=== PATIENT | male | born 1995 | race Two or more races ===

== ENCOUNTER 2019-07-01 13:50 | Emergency (ER) | payer OTHER ==
[2019-07-01] MEDS ORDERED: Sodium Chloride 0.9% 2.5 ML Syringe FLUSH PRN (14:20)
[2019-07-01] MEDS ORDERED: Sodium Chloride 0.9% 1,000 ML IV ONE (14:20)
[2019-07-01] MEDS ORDERED: Ketorolac 30 MG/ML SDV IVPUSH ONE (14:20)
[2019-07-01] MEDS ORDERED: Sodium Chloride 0.9% 10 ML Syringe FLUSH PRN (14:20)
--- NOTE | 2019-07-01 14:25 | EDM.PDOC ---
ED HPI GENERAL MEDICAL PROBLEM - General Chief Complaint: General Stated Complaint: LT LEG PAIN Time Seen by Provider: 07/01/19 13:59 - History of Present Illness INITIAL COMMENTS - FREE TEXT/NARRATIVE: HISTORY AND PHYSICAL: History of present illness: The patient is a healthy 23-year-old male who works here on the [email or web address] presents with onset of left lower back/flank pain that radiates to his left groin and inner thigh as well as his testicle that started 3 days ago. He says that he came on suddenly while he was working but he was not doing anything different or new and he always does lifting and strenuous activity at work. He says the pain comes and goes in intensity and is worse when he is moving around and better when he lays flat. He said no hematuria dysuria or frequency no testicular swelling and no fevers or chills. He has no kidney stone history or UTI history. His tried [id number] Tylenol and has not improved. He has no weakness or numbness in his lower extremity and he has no lumps or bumps or hernias that he is aware of. He says that he has had normal bowel movements until today but today he had 4 episodes of loose stools/diarrhea. He is eating and drinking normally. He denies any recent trauma to his lower back and has no bony midline pain and says the discomfort is off to the left side. That pain and radiates to the front of his left lower abdomen. He indicates to me above the inguinal ligament as the area of the lower quadrant on the left . Please also note that the pain does not radiate down the back of his leg and there is no weakness numbness or tingling in that left leg. The patient has no bowel or bladder disturbances Review of systems: As per history of present illness and below otherwise all systems reviewed and negative. Past medical history: As per history of present illness and as reviewed below otherwise noncontributory. Surgical history: As per history of present illness and as reviewed below otherwise noncontributory. Social history: No reported history of drug or alcohol abuse. Family history: As per history of present illness and as reviewed below otherwise noncontributory. Physical exam: General: Well-developed well-nourished man who is nontoxic and vital signs are noted by me. He moves easily in the ED without distress. He ambulated into the ED without assistance or ataxia HEENT: Atraumatic, normocephalic, negative for conjunctival pallor or scleral icterus, mucous membranes moist, throat clear, neck supple, nontender, trachea midline. Lungs: Clear to auscultation, breath sounds equal bilaterally, chest nontender. Heart: S1S2, regular rate and rhythm no overt murmurs Abdomen: Soft, nondistended, nontender. When I palpate the left lower quadrant the patient indicates that area just above the inguinal ligament as his site of discomfort but says that when I press on it now it is not very uncomfortable. There is no rebound or guarding bowel sounds are normoactive and there is no tympany on percussion. Negative for masses or hepatosplenomegaly. Negative for costovertebral tenderness. Pelvis: Stable nontender. Genitourinary: Testicles are equal in size and no evidence of any swelling and there is no overt hernia appreciated on supine exam. Rectal: Deferred. Extremities: Atraumatic, negative for cords or calf pain. Neurovascular unremarkable. Full range of motion of all extremities without defects or deficits Neuro: Awake, alert, oriented. Cranial nerves II through XII unremarkable. Cerebellum unremarkable. Motor and sensory unremarkable throughout. Exam nonfocal. Tone is normal and patellar reflexes are +2 over 4 bilaterally. Patient can dorsi and plantar flex with 5/5 motor strength bilaterally and invert and Ja the feet. Back: There are no midline step-offs in his defects of the thoracic or lumbar spine no posterior rib or posterior pelvis tenderness and no tenderness with palpation in the left buttocks area he does have discomfort with straight leg rise on the left Diagnostics: CBC CMP UA scan of the abdomen and pelvis Therapeutics: IV fluids Toradol Solu-Medrol Patient and family at bedside are aware of the CT scan results which does not reveal any significant kidney stones or GI abnormality but does reveal a broad disc bulge at L5-S1. Although his presentation is very atypical it does correlate with his discomfort now that I have returned and done a straight leg rise and talk to him a little bit more. I will give him a dose of Solu-Medrol here as well as a Medrol Dosepak for home and pain management. I advised that he does not work for the next 3 days and get follow-up in our clinic. He is aware of reasons to return. Impression: Left back and pelvic pain, disc disease/inflammation L5-S1 Definitive disposition and diagnosis as appropriate pending reevaluation and review of above. Left Flank Pain Score (Numeric/FACES): 6 - Related Data Allergies Allergy/AdvReac Type Severity Reaction Status Date / Time No Known Allergies Allergy Verified 07/01/19 14:09 Home Meds: Home Meds . [No Known Home Meds] 07/01/19 [History] Past Medical History - Past Health History Medical/Surgical History: Denies Medical/Surgical History - Past Surgical History HEENT Surgical History: Reports: Tonsillectomy Social & Family History - Family History Family Medical History: Noncontributory - Tobacco Use Smoking Status *Q: Never Smoker - Recreational Drug Use Recreational Drug Use: No ED ROS GENERAL - Review of Systems Review Of Systems: ROS reveals no pertinent complaints other than HPI. ED EXAM, GENERAL - Physical Exam Exam: See Below (See dictation) Course - Vital Signs Last Recorded V/S: Last Vital Signs Temp 35.9 C 07/01/19 14:04 Pulse 72 07/01/19 14:04 Resp 18 07/01/19 14:04 BP 139/76 07/01/19 14:04 Pulse Ox 18 L 07/01/19 14:04 - Orders/Labs/Meds Orders: Active Orders 24 hr Category Date Time Status Sodium Chloride 0.9% [Saline Flush] Med 07/01/19 14:20 Active 10 ml FLUSH ASDIRECTED PRN Sodium Chloride 0.9% [Saline Flush] Med 07/01/19 14:20 Active 2.5 ml FLUSH ASDIRECTED PRN Saline Lock Insert [OM.PC] Stat Oth 07/01/19 14:19 Ordered Medication Orders Sodium Chloride (Saline Flush) 10 ml FLUSH ASDIRECTED PRN PRN Reason: Keep Vein Open Last Admin: 07/01/19 14:40 Dose: 10 ml Sodium Chloride (Saline Flush) 2.5 ml FLUSH ASDIRECTED PRN PRN Reason: Keep Vein Open Last Admin: 07/01/19 14:39 Dose: 2.5 ml Labs: Laboratory Tests 07/01/19 07/01/19 07/01/19 Range/Units 14:19 14:27 14:27 WBC 6.10 (4.0-11.0) K/uL RBC 4.92 (4.50-5.90) M/uL Hgb 15.5 (13.0-17.0) g/dL Hct 44.7 (38.0-50.0) % MCV 90.9 (80.0-98.0) fL MCH 31.5 (27.0-32.0) pg MCHC 34.7 (31.0-37.0) g/dL RDW Std Deviation 43.2 (28.0-62.0) fl RDW Coeff of Berta 13 (11.0-15.0) % Plt Count 250 (150-400) K/uL MPV 10.00 (7.40-12.00) fL Add Manual Diff YES Neutrophils % (Manual) 26 L (48.0-80.0) % Lymphocytes % (Manual) 50 H (16.0-40.0) % Monocytes % (Manual) 20 H (0.0-15.0) % Eosinophils % (Manual) 3 (0.0-7.0) % Basophils % (Manual) 1 (0.0-1.5) % Nucleated RBC % 0.0 /100WBC Absolute Seg Neuts 1.6 (1.4-5.7) Lymphocytes # (Manual) 3.1 H (0.6-2.4) Monocytes # (Manual) 1.2 H (0.0-0.8) Eosinophils # (Manual) 0.2 (0.0-0.7) Basophils # (Manual) 0.1 (0.0-0.1) Nucleated RBCs # 0 K/uL Sodium 140 (136-148) mmol/L Potassium 4.0 (3.5-5.1) mmol/L Chloride 106 (98-107) mmol/L Carbon Dioxide 26.6 (21.0-32.0) mmol/L BUN 17 (7.0-18.0) mg/dL Creatinine 1.1 (0.8-1.3) mg/dL Est Cr Clr Drug Dosing TNP Estimated GFR (MDRD) > 60.0 ml/min Glucose 74 (74-106) mg/dL Calcium 8.7 (8.5-10.1) mg/dL Total Bilirubin 0.3 (0.2-1.0) mg/dL AST 48 H (15-37) IU/L ALT 33 (14-63) IU/L Alkaline Phosphatase 105 (46-116) U/L Total Protein 7.6 (6.4-8.2) g/dL Albumin 4.1 (3.4-5.0) g/dL Globulin 3.5 (2.6-4.0) g/dL Albumin/Globulin Ratio 1.2 (0.9-1.6) Urine Color YELLOW Urine Appearance CLEAR Urine pH 6.5 (5.0-8.0) Ur Specific [place] 1.020 (1.001-1.035) Urine Protein NEGATIVE (NEGATIVE) mg/dL Urine Glucose (UA) NEGATIVE (NEGATIVE) mg/dL Urine Ketones NEGATIVE (NEGATIVE) mg/dL Urine Occult Blood NEGATIVE (NEGATIVE) Urine Nitrite NEGATIVE (NEGATIVE) Urine Bilirubin NEGATIVE (NEGATIVE) Urine Urobilinogen 0.2 (<2.0) EU/dL Ur Leukocyte Esterase NEGATIVE (NEGATIVE) Urine RBC NONE SEEN (0-2/HPF) Urine WBC NONE SEEN (0-5/HPF) Ur Epithelial Cells RARE (NONE-FEW) Urine Bacteria NOT SEEN (NEGATIVE) Meds: Medications Generic Name Dose Route Start Last Admin Trade Name Freabby PRN Reason Stop Dose Admin Sodium Chloride 10 ml 07/01/19 14:20 07/01/19 14:40 Saline Flush FLUSH 10 ml ASDIRECTED PRN Administration Keep Vein Open Sodium Chloride 2.5 ml 07/01/19 14:20 07/01/19 14:39 Saline Flush FLUSH 2.5 ml ASDIRECTED PRN Administration Keep Vein Open Discontinued Medications Generic Name Dose Route Start Last Admin Trade Name Freabby PRN Reason Stop Dose Admin Sodium Chloride 1,000 mls @ 999 mls/hr 07/01/19 14:20 07/01/19 14:39 Normal Saline IV 07/01/19 15:20 999 mls/hr STAT ONE Administration Ketorolac Tromethamine 30 mg 07/01/19 14:20 07/01/19 14:39 Toradol IVPUSH 07/01/19 14:21 30 mg ONETIME ONE Administration Methylprednisolone Sodium Succinate 125 mg 07/01/19 15:23 Solu-Medrol IVPUSH 07/01/19 15:24 ONETIME ONE Departure - Departure Time of Disposition: 15:28 Disposition: Home, Self-Care 01 Condition: Good Clinical Impression: Bulge of lumbar disc without myelopathy - Discharge Information Referrals: PCP,Unknown [Primary Care Provider] - Forms: ED Department Discharge Additional Instructions: The following information is given to patients seen in the emergency department who are being discharged to home. This information is to outline your options for follow-up care. We provide all patients seen in our emergency department with a follow-up referral. The need for follow-up, as well as the timing and circumstances, are variable depending upon the specifics of your emergency department visit. If you don't have a primary care physician on staff, we will provide you with a referral. We always advise you to contact your personal physician following an emergency department visit to inform them of the circumstance of the visit and for follow-up with them and/or the need for any referrals to a consulting specialist. The emergency department will also refer you to a specialist when appropriate. This referral assures that you have the opportunity for followup care with a specialist. All of these measure are taken in an effort to provide you with optimal care, which includes your followup. Under all circumstances we always encourage you to contact your private physician who remains a resource for coordinating your care. When calling for followup care, please make the office aware that this follow-up is from your recent emergency room visit. If for any reason you are refused follow-up, please contact the [facility] emergency department at and ask to speak to the emergency department charge nurse. [facility] Primary care- Internal Medicine and Family [address] [address] Please do not do any heavy lifting and do all movements more slowly so as to not inflamed or irritated area. No work for the next 3 days and then please call and follow-up with a local clinic provider or one of our providers for reevaluation and further care of this problem. He may need physical therapy or other intervention going forward. Take medications as prescribed and only take the stronger meds when you are able to stay at home and not drive a car or operate machinery. Do not take the stronger medications when you are work. Return to ER as needed and as discussed - My Orders Last 24 Hours: My Active Orders 07/01/19 14:19 Saline Lock Insert [OM.PC] Stat 07/01/19 14:20 Sodium Chloride 0.9% [Saline Flush] 10 ml FLUSH ASDIRECTED PRN Sodium Chloride 0.9% [Saline Flush] 2.5 ml FLUSH ASDIRECTED PRN - Assessment/Plan Last 24 Hours: My Active Orders 07/01/19 14:19 Saline Lock Insert [OM.PC] Stat 07/01/19 14:20 Sodium Chloride 0.9% [Saline Flush] 10 ml FLUSH ASDIRECTED PRN Sodium Chloride 0.9% [Saline Flush] 2.5 ml FLUSH ASDIRECTED PRN
[2019-07-01 15:15] LABS: BLOOD UREA NITROGEN,BUN 17 mg/dL (7.0-18.0); CARBON DIOXIDE,CO2 26.6 mmol/L (21.0-32.0); CHLORIDE,CL 106 mmol/L (98-107); GLUCOSE RANDOM 74 mg/dL (74-106); SODIUM,NA 140 mmol/L (136-148)
--- NOTE | 2019-07-01 15:21 | CT ---
INDICATION: Left lower quadrant abdomen and back pain. Bowel issues. TECHNIQUE: CT abdomen and pelvis without contrast. COMPARISON: None. FINDINGS: Lower chest: Unremarkable. Liver: Normal in size and attenuation. No masses. Gallbladder and bile ducts: No stones or inflammation. No biliary dilatation. Pancreas: Unremarkable. No mass or inflammation. Spleen: Normal in size. No masses. Adrenal glands: Punctate calcifications are in the right adrenal gland. Unremarkable left adrenal gland. Kidneys: Normal in size. No masses, stones, or hydronephrosis. GI tract: Unremarkable. Normal in caliber. No sign of mass or inflammation. Normal appendix. Vasculature: Unremarkable. Lymph nodes: No lymphadenopathy. Abdominal wall/Omentum/Peritoneum: Unremarkable. No sign of mass or infiltration. No free air or significant free fluid. Pelvis: Unremarkable. No pelvic masses. Bones: Prominent broad posterior disc bulge is at L5-S1. Otherwise unremarkable. IMPRESSION: No acute or specific finding to explain left-sided abdomen or flank pain. Specifically no renal stones and no hydronephrosis and the GI tract is unremarkable. Please note that all CT scans at this facility use dose modulation, iterative reconstruction, and/or weight-based dosing when appropriate to reduce radiation dose to as low as reasonably achievable. Dictated by Thor Sal MD @ Jul 01 2019 3:06PM Signed by Dr. Tohr Sal @ Jul 01 2019 3:20PM
[2019-07-01] MEDS ORDERED: methylPREDNISolone Sodium Succinate 125 MG/2 ML SDV IVPUSH ONE (15:23)
== END 2019-07-01 15:39 | disposition home or self-care (01) ==
LOC: MW.ED 13:50
DX: M51.37 Other intervertebral disc degeneration, lumbosacral region (principal); R10.2 Pelvic and perineal pain; Z98.890 Other specified postprocedural states; X50.0XXA Overexertion from strenuous movement or load, initial encounter; Y99.0 Civilian activity done for income or pay
CPT/HCPCS: 36415; 74176; 80053; 81001; 85025; 96361; 96374; 96375; 99284; J1885; J2930; J7040; 99283

== ENCOUNTER 2019-08-15 13:55 | Emergency (ER) | payer OTHER ==
--- NOTE | 2019-08-15 14:10 | EDM.PDOC ---
ED HPI GENERAL MEDICAL PROBLEM - General Chief Complaint: Back Pain or Injury Stated Complaint: LEFT BACK PAIN Time Seen by Provider: 08/15/19 13:58 Source of Information: Reports: Patient History Limitations: Reports: No Limitations - History of Present Illness INITIAL COMMENTS - FREE TEXT/NARRATIVE: HISTORY AND PHYSICAL: History of present illness: Patient is a 24-year-old male presenting to the emergency room for complaints of back pain. He does have a [place]-speaking court interpreter at the bedside. Patient was evaluated in the ED from a work related accident on 07/01/2019. He had lab work and a CT scan of the abdomen and pelvis. CT did show disc disease/ inflammation of L5-S1. Was given a script for [place], which he states had helped with is pain. He also has follow up for PT, but has not yet started these sessions yet. He reports that the pain in his back went away, however 3 days ago it came back and is worse, rating it at a 10/10 without [place]. He states that the pain in his lower back is aggravated through movement and alleviated slightly with taking his [place] prescription, taking his pain down to 7/10. He states that the back of his left calf feels like it is "asleep", along with the third and fourth digit on his left foot. Patient denies nausea, vomiting, abdominal pain, loss of bowel or bladder, or chills. He reports hesitancy for bowel movements, along with subjective fevers 2 days ago. He denies recurrent fever today. Review of systems: As per history of present illness and below otherwise all systems reviewed and negative. Past medical history: As per history of present illness and as reviewed below otherwise noncontributory. Surgical history: As per history of present illness and as reviewed below otherwise noncontributory. Social history: See social history for further information Family history: As per history of present illness and as reviewed below otherwise noncontributory. Physical exam: General: Well-developed and well-nourished 24-year-old male. Alert and oriented. Nontoxic appearing and in no acute distress. Vital signs are normal and reviewed by me. HEENT: Atraumatic, normocephalic, pupils equal and reactive bilaterally, negative for conjunctival pallor or scleral icterus, mucous membranes moist, TMs normal bilaterally, throat clear, neck supple, nontender, trachea midline. No drooling or trismus noted. No meningeal signs. No hot potato voice noted. Lungs: Clear to auscultation, breath sounds equal bilaterally, chest nontender. Heart: S1S2, regular rate and rhythm without overt murmur Abdomen: Soft, nondistended, nontender. Negative for masses or hepatosplenomegaly. Negative for costovertebral tenderness. Pelvis: Stable nontender. C-spine/Back: No pinpoint vertebral tenderness upon palpation of C-Spine/Back. Tender to palpation on the left posterior side of patient's hip. No crepitus, step-offs or obvious deformities. Patient is ambulatory into the emergency room without difficulty or deficit. Able to rock back on heels and walk on toes. Denies any urinary or fecal incontinence. Reports tingling/numbness in the left calf, along with third and fourth digits on the left foot. Skin: Intact, warm, dry. No lesions or rashes noted. Extremities: Atraumatic, moves all extremities per self without difficulty or deficits, negative for cords or calf pain. Neurovascular unremarkable. Neuro: Awake, alert, oriented. Cranial nerves II through XII unremarkable. Cerebellum unremarkable. Motor and sensory unremarkable throughout. Exam nonfocal. Notes: Show no acute findings. Patient did find relief with the Toradol and Norflex. He already has physical therapy set up, encouraged him to attend one of these appointments. Would like him to see his primary care provider as he may need an MRI if pain continues. Supportive care measures were reviewed and discussed. Voices understanding and is agreeable to plan of care. Denies any further questions or concerns at this time. Diagnostics: Lumbar spine x-ray Therapeutics: Toradol and Norflex Prescription: Medrol DosePak, Flexeril, Diclofenac Impression: Lumbar back pain Plan: 1. The medication you received today does cause drowsiness, so do not drive for the remaining day 2. When resting please lay on a flat firm surface. Limit your immobility to prevent muscle stiffness. Get up to ambulate/move around/gentle stretching multiple times throughout the day. May alternate heat and ice to the painful areas. Please follow-up with your physical therapy appointments. 3. Tylenol as needed for back pain. Otherwise take the prescribed Flexeril and diclofenac as directed. Diclofenac is an anti-inflammatory so do not take any additional NSAIDs with this medication, such as ibuprofen or Aleve. Flexeril as a muscle relaxant, this medication may cause drowsiness a do not take it will driving her needing to be functioning outside of the house. 4. Please follow-up with your primary care provider as we discussed. Return to the ED as needed and as discussed. Definitive disposition and diagnosis as appropriate pending reevaluation and review of above. Back Pain Score (Numeric/FACES): 7 - Related Data Allergies Allergy/AdvReac Type Severity Reaction Status Date / Time No Known Allergies Allergy Verified 08/15/19 14:08 Home Meds: Home Meds Hydrocodone/Acetaminophen [Hydrocodon-Acetaminoph 7.5-325] 08/15/19 [History] Past Medical History - Past Health History Medical/Surgical History: Denies Medical/Surgical History - Past Surgical History HEENT Surgical History: Reports: Tonsillectomy Social & Family History - Family History Family Medical History: Noncontributory ED ROS GENERAL - Review of Systems Review Of Systems: ROS reveals no pertinent complaints other than HPI. ED EXAM,LOWER BACK PAIN/INJURY - Physical Exam Exam: See Below (See dictation) Course - Vital Signs Last Recorded V/S: Last Vital Signs Temp 97.0 F 08/15/19 14:09 Pulse 72 08/15/19 14:09 Resp 18 08/15/19 14:09 BP 132/89 08/15/19 14:09 Pulse Ox 97 08/15/19 14:09 - Orders/Labs/Meds Meds: Medications Discontinued Medications Generic Name Dose Route Start Last Admin Trade Name Arturq PRN Reason Stop Dose Admin Ketorolac Tromethamine 60 mg 08/15/19 14:14 08/15/19 14:44 Toradol IM 08/15/19 14:15 60 mg ONETIME ONE Administration Orphenadrine Citrate 60 mg 08/15/19 14:14 08/15/19 14:44 Norflex IM 08/15/19 14:15 60 mg NOW STA Administration Departure - Departure Time of Disposition: 15:11 Disposition: Home, Self-Care 01 Clinical Impression: Lumbar back pain - Discharge Information Referrals: PCP,None [Primary Care Provider] - Forms: ED Department Discharge Additional Instructions: The following information is given to patients seen in the emergency department who are being discharged to home. This information is to outline your options for follow-up care. We provide all patients seen in our emergency department with a follow-up referral. The need for follow-up, as well as the timing and circumstances, are variable depending upon the specifics of your emergency department visit. If you don't have a primary care physician on staff, we will provide you with a referral. We always advise you to contact your personal physician following an emergency department visit to inform them of the circumstance of the visit and for follow-up with them and/or the need for any referrals to a consulting specialist. The emergency department will also refer you to a specialist when appropriate. This referral assures that you have the opportunity for follow-up care with a specialist. All of these measure are taken in an effort to provide you with optimal care, which includes your follow-up. Under all circumstances we always encourage you to contact your private physician who remains a resource for coordinating your care. When calling for follow-up care, please make the office aware that this follow-up is from your recent emergency room visit. If for any reason you are refused follow-up, please contact the [facility] Emergency Department at and asked to speak to the emergency department charge nurse. [facility] [address] [place] [id number] [address] 1. The medication you received today does cause drowsiness, so do not drive for the remaining day 2. When resting please lay on a flat firm surface. Limit your immobility to prevent muscle stiffness. Get up to ambulate/move around/gentle stretching multiple times throughout the day. May alternate heat and ice to the painful areas. Please follow-up with your physical therapy appointments. 3. Tylenol as needed for back pain. Otherwise take the prescribed Flexeril and diclofenac as directed. Diclofenac is an anti-inflammatory so do not take any additional NSAIDs with this medication, such as ibuprofen or Aleve. Flexeril as a muscle relaxant, this medication may cause drowsiness a do not take it will driving her needing to be functioning outside of the house. 4. Please follow-up with your primary care provider as we discussed. Return to the ED as needed and as discussed.
[2019-08-15] MEDS ORDERED: Ketorolac 60 MG/2 ML SDV IM ONE (14:14)
--- NOTE | 2019-08-15 14:51 | CR ---
Lumbar spine: AP, lateral and coned-down lateral views centered to the lumbosacral junction were obtained. Comparison: No previous study. Vertebral body heights and disc spaces are maintained. Minimal scoliosis is noted. Pedicles as well as visualized transverse and spinous processes are intact. No subluxation or fracture is seen. Impression: 1. Minimal scoliosis. 2. Three-view lumbar spine study is otherwise unremarkable. Diagnostic code #2 MTDD
--- NOTE | 2019-08-15 14:52 | CR ---
Pelvis and left hip: AP view of the pelvis was obtained as well as AP and is very slight frog-leg lateral view of the left hip. Comparison: No previous study. Joint spaces within both hips are maintained. Sacroiliac joints are felt to be within normal limits. Sclerotic area is seen overlying the right sacroiliac joint most likely due to large bone island. No acute fracture or other bony abnormality is seen. Impression: 1. Calcification which are felt compatible with large bone island overlying the right sacroiliac joint. 2. AP pelvis and frog-leg lateral left hip exam is otherwise unremarkable. Diagnostic code #2 MTDD
== END 2019-08-15 15:49 | disposition home or self-care (01) ==
LOC: MW.ED 13:55
DX: M54.5 Low back pain (principal)
CPT/HCPCS: 72100; 73502; 96372; 99283; J1885; J2360